=== PATIENT | female | born 1960 | race Caucasian/White ===

== ENCOUNTER 2019-01-31 08:04 | Day surgery (SDC) | payer OTHER ==
[~2019-01-31] VITALS: Ht 162.6 cm; Wt 53.3 kg
--- NOTE | 2019-01-31 08:54 | NUR ---
Ambulatory in Day Surgery History, Chart, Medications and Allergies reviewed before start of procedure.Lungs clear T/O to Auscultation. Patient confirms NPO status and agrees with scheduled surgery. Pre-Op teaching done. Pt verbalizes understanding.
--- NOTE | 2019-01-31 10:10 | NUR ---
01/31/19 1010 Julita Oshea History, Chart, Medications and Allergies reviewed before start of procedure.PATIENT DETERMINED TO BE ASA APPROPRIATE FOR PROPOFOL SEDATION PRIOR TO START OF PROCEDURE BY .MONITOR INTACT WITH CONTINUOUS PULSE OXIMETRY AND INTERMITTENT BP.3-LEAD EKG REVIEWED WITH PHYSICIAN PRIOR TO START OF PROCEDURE.O2 VIA N/C INTACT THROUGHOUT SEDATION/PROCEDURE.
--- NOTE | 2019-01-31 10:32 | NUR ---
PT RETURNED TO STEP WITH C/O NAUSEA - FREQUENT COUGHING OF MUCOUS. CLEAR IN COLOR. PT ABLE TO PROTECT AIRWAY AND SPEAK IN FULL SENTENCES. PT INCONTINENT OF URINE DURING PROCEDURE. ARRANGING FOR CHANGE OF CLOTHES. NO C/O PAIN.
--- NOTE | 2019-01-31 10:45 | NUR ---
PT ABLE TO SPEAK IN LONGER SENTENCES WITHOUT COUGHING. EATING ICE CHIPS AT THIS TIME. SWALLOWING WITHOUT DIFFICULTY.
--- NOTE | 2019-01-31 10:56 | NUR ---
PT WITH LESS COUGHING, MAINTAINING OWN AIRWAY. TOLERATING ICE CHIPS WITHOUT DIFFICULTY. REVIEWED DISCHARGE INSTRUCTIONS AND PATIENT VERBALIZES UNDERSTANDING OF ALL INSTRUCTIONS GIVEN. PLANNING FOR DISCHARGE.
--- NOTE | 2019-01-31 11:15 | NUR ---
PT DRESSED SELF WITH MINIMAL ASSISTANCE FROM STAFF. IV D/C TIP INTACT. PT DISCHARGED HOME VIA W/C WITH [facility] [employer] TO DRIVE HER. [facility] CALLED BY THIS RN TO VERIFY ARRIVAL TIME.
== END 2019-01-31 22:43 | disposition home or self-care (01) ==
LOC: ORSCMMR 08:04 → ORD 09:30 → ORSCMMR 22:43
PROVIDERS: Internal Medicine Gastroenterology
PROC: 0DB48ZX Excision of Esophagogastric Junction, Via Natural or Artificial Opening Endoscopic, Diagnostic (ICD-10-PCS; principal; 2019-01-31 09:30)
PROC: 0DB58ZX Excision of Esophagus, Via Natural or Artificial Opening Endoscopic, Diagnostic (ICD-10-PCS; principal; 2019-01-31 09:30)
PROC: 0DB68ZX Excision of Stomach, Via Natural or Artificial Opening Endoscopic, Diagnostic (ICD-10-PCS; principal; 2019-01-31 09:30)
DX: R13.14 Dysphagia, pharyngoesophageal phase (principal); K21.9 Gastro-esophageal reflux disease without esophagitis; K44.9 Diaphragmatic hernia without obstruction or gangrene; F17.210 Nicotine dependence, cigarettes, uncomplicated; F41.8 Other specified anxiety disorders
CPT/HCPCS: 88305; 88342; J2250; J2704; J7120